=== PATIENT | male | born 1955 | race Caucasian/White ===

== ENCOUNTER 2017-08-05 09:12 | Outpatient (CLI) | payer MEDICARE ==
[2017-08-05] MEDS ORDERED: Gadobenate Dimeglumine 529 MG/1 ML (20ML VIAL) ONE (13:24)
--- NOTE | 2017-08-05 13:35 | MRI ---
MRI OF THE PROSTATE WITH AND WITHOUT IV CONTRAST: Date: 08/05/17 INDICATION: Prostate cancer with recent biopsy 6 weeks ago. TECHNIQUE: Multiplanar, multisequence MR images were obtained of the pelvis with and without IV contrast. 20 mL of MultiHance was utilized for the examination. No comparisons are available. FINDINGS: The prostate measures 4.5 x 3.5 x 4.0 cm, giving an estimated prostatic volume of 32.76 mL. There is some residual T1 hyperintensity seen within the peripheral zone of the mid to apical prostat e gland consistent with the patient's recent biopsy. The residual hemorrhage slightly limits image de tail of the peripheral zone and identification of lesions, particularly on the T2-weighted images. No suspicious restricted diffusion is seen within the peripheral zone. There is a 1.8 x 1.6 cm smudge-like area of ill-defined T2 hypointensity with corresponding restricte d diffusion on the ADC and DWI images. There is positive rapid arterial enhancement with washout of t his area on the dynamic contrast images. No additional suspicious focal lesion is evident. The neurovasculature appears within normal limits. The seminal vesicles are normal appearing. There is scattered diverticula involving the colon. There is osteonecrosis of bilateral femoral heads without evidence of subchondral collapse. No pathologically enlarged lymph nodes are evident. There fat-containing inguinal hernias bilaterally. IMPRESSION: 1. PI-RADS Category 5 - Very high (clinically significant cancer is highly likely to be present). 2. There is a 1.8 cm mass within the medial and lateral aspect of the left mid gland, within the peggy tral zone, that is suspicious for high grade malignancy. 3. Osteonecrosis of both femoral heads. POS: JANAK
== END 2017-08-05 09:13 | disposition home or self-care (01) ==
LOC: TBSIIMAG 09:12
PROVIDERS: ATTEND Urology
DX: C61 Malignant neoplasm of prostate (principal); M87.9 Osteonecrosis, unspecified
CPT/HCPCS: 72197; 82565; A9579

== ENCOUNTER 2017-09-16 12:00 | Inpatient (IN) | payer MEDICARE ==
[2017-09-16 13:47] VITALS: BMI 27.6
[2017-10-08] MEDS ORDERED: Midazolam HCl 2 mg/2 ml Vial ONE ×2 (06:46→07:25)
[2017-10-08] MEDS ORDERED: Fentanyl 100 MCG/2 ML VIAL ONE ×4 (06:46→15:22)
[2017-10-08] MEDS ORDERED: cefOXitin 2 GM VIAL ONE ×2 (07:01→09:59)
[2017-10-08] MEDS ORDERED: Gentamicin 80 MG/2 ML VIAL ONE (07:01)
[2017-10-08] MEDS ORDERED: Gentamicin Sulfate 120 MG in Premix Bag 1 BAG IVPB SCH (07:15)
[2017-10-08] MEDS ORDERED: Dexamethasone 4 mg/ml Vial ONE (07:25)
[2017-10-08] MEDS ORDERED: Gentamicin Sulfate 80 MG in Premix Bag 1 BAG IVPB SCH (07:30)
[2017-10-08] MEDS ORDERED: Sodium Chloride 0.9% 100 ML ONE (07:32)
[2017-10-08] MEDS ORDERED: Lidocaine 1% (PF) 30 ML VIAL ONE (07:34)
[2017-10-08] MEDS ORDERED: Vecuronium 10 MG VIAL ONE ×2 (07:46→13:47)
[2017-10-08] MEDS ORDERED: Fentanyl 250 MCG/5 ML VIAL ONE (07:46)
[2017-10-08] MEDS ORDERED: Albumin 5% 500 ML ONE (07:54)
[2017-10-08] MEDS ORDERED: HYDROmorphone 0.5 MG/0.5 ML SYRINGE ONE (11:38)
[2017-10-08] MEDS ORDERED: Meperidine HCl/PF 25 MG/ML VIAL SLOW IVP PRN (13:07)
[2017-10-08] MEDS ORDERED: Promethazine HCl 25 MG/ML VIAL IM PRN (13:07)
[2017-10-08] MEDS ORDERED: Ondansetron HCl/PF 4 MG/2 ML Vial IVP PRN ×2 (13:07→16:52)
[2017-10-08] MEDS ORDERED: Promethazine HCl 25 MG/ML VIAL SLOW IVP PRN (13:07)
[2017-10-08] MEDS ORDERED: HYDROmorphone 2 MG/ML VIAL SLOW IVP PRN (13:07)
[2017-10-08] MEDS ORDERED: B & O ONE (13:17)
[2017-10-08] MEDS ORDERED: Ondansetron HCl/PF 4 MG/2 ML Vial ONE (13:47)
[2017-10-08] MEDS ORDERED: Glycopyrrolate 0.2 MG/ML 5 ML SYRINGE ONE (13:47)
[2017-10-08] MEDS ORDERED: PROPOFOL 200 MG/20 ML VIAL ONE (13:47)
[2017-10-08] MEDS ORDERED: Ketorolac Tromethamine 30 MG/ML VIAL ONE (13:47)
[2017-10-08] MEDS ORDERED: Lidocaine 1% PF 5 ML VIAL ONE (13:47)
--- NOTE | 2017-10-08 14:06 | OP ---
DATE OF SURGERY: 10/08/2017 SERVICE: Urology. SURGEON: Juventino Mccracken M.D. PREOPERATIVE DIAGNOSIS: Prostate cancer. POSTOPERATIVE DIAGNOSIS: Prostate cancer. PROCEDURE PERFORMED: Robotic-assisted laparoscopic prostatectomy with bilateral pelvic lymph node di ssection. INDICATIONS FOR PROCEDURE: Mr. March is a 62-year-old white male who initially presented to ri with elevated PSA. He underwent prostate biopsy demonstrating multifocal Smoot 3+3 prostate cancer. Hi s PSA was elevated to 9. We discussed options and he elected to go forward with the prostatectomy. Risks and benefits have been discussed and he has agreed to proceed forward. DESCRIPTION OF PROCEDURE: After identification of arm band verification and consent, patient was bro ught back to the operating room where he underwent general anesthesia with endotracheal intubation. He was then placed in low lithotomy position in a steep Trendelenburg position and prepped and draped in usual sterile fashion. After appropriate timeout, a 16 Sudanese Billings catheter was placed into the patient's bladder. A Veress needle entry was used through the umbilicus to cause pneumoperitoneum a t high flow and low pressure until the peritoneum was insufflated to 50 mmHg. The 12 mm balloon port was placed at the umbilicus and the rest of the ports were placed under direct vision with the camer a with a 15 mm port for #1 arm, two 8 mm ports for the #2 and #3 arm, a 5 mm commercial lending assistant port in the ri ght upper quadrant and an 11 port in the right lower quadrant. There were significant adhesions on t he patient's left abdomen which had to be taken down with either sharp dissection or monopolar. Once the adhesions have been taken down, the colon was gently mobilized and then retracted cephalad. A s emicircular incision was made on the anterior surface of the peritoneum in the rectovesical space. T he seminal vesicles were identified and dissected free along with the vas deferens. These were compl etely mobilized for the posterior approach. Denonvilliers fascia was identified and dissection ailyn ed out towards the apex just above the Denonvilliers fascia. We then backed out and began on the piper dder portion of the surgery. An incision was made lateral to each medial umbilical ligament on the r ight and left, getting into the space of Retzius on both sides and using blunt dissection to expose t he pubic arch. There were significant adhesions and scarring on the left side, but this side was als o able to be developed properly. Once adequately developed, the two incisions were connected to each other in the cephalad area and the loose areolar tissue divided to drop the bladder down. The pubic arch was completely cleared free and the periprosthetic space dissected and cleared of loose areolar tissue. The preprosthetic fat in the superficial venous complex was cauterized and then removed for routine pathologic evaluation. The endopelvic fascia on both sides were gently cauterized and opene d to develop the space lateral to the prostate on both sides. This was carried up to the puboprostat ic ligament and all the way down towards the apex of the prostate. The puboprostatics were bipolared and then divided. Once both sides were completely mobilized and the DVC was thinned out enough, the vascular loaded robotic stapler was brought in to staple the dorsal venous complex. The catheter wa s found to be free of the staple line by checking the catheter before stapling. Once the DVC was div ided, the bladder neck dissection was started. The bladder neck was dissected with monopolar cautery reaching the internal sphincter and urethra. This was dissected free with sharp dissection and divi ded to expose the Billings catheter. The Billings was withdrawn and then readvanced to use as a retractor to lift the prostate anteriorly. Dissection was then carried out through the remainder of the bladde r neck posteriorly until the previously dissected space with the seminal vesicles were identified. T he seminal vesicles were then brought up and the pedicles thinned out on both sides and the remainder of Denonvilliers space developed. Given the patient elected for a non-nerve sparing surgery, the ve ssel sealer was then used to divide the pedicles on both sides towards the apex of the prostate. The last one-third to one-fourth of the pedicle was done sharply without energy at this was enclosed pro ximity to the rectum. The urethra was then dissected free using blunt dissection and monopolar caute ry until the entire urethra was able to be elevated using the [place] bipolars. The urethra was the n divided with sharp dissection using scissors and the rectourethralis divided using a combination of cautery and sharp dissection keeping close care to avoid injury to the rectum. No energy was used n ear the rectum. There were 2 very small neurovascular bundle branch bleeders which were pinpoint cau terized with bipolar. Upon completion, the prostate was completely freed up and deposited to the [facility] pericolic gutter. Bilateral pelvic lymph node dissections were then performed using the iliac vei n as a boarder cephalad in the pubic arch caudally. The obturator nerve posteriorly and the circumfl ex femoral vein anteriorly. The intervening fat and lymph nodes were then removed on both sides and these were submitted for routine pathologic evaluation. The Robi stitch using a 2-0 Vicryl was then used with an SH needle to place through the rectourethralis in the base of the bladder to reapproxim ate the bladder neck and the urethra. A V-Loc suture was then used to complete the anastomosis in a running fashion circumferentially. The final 18-Sudanese Billings catheter was able to be passed in. Alt randy there was a little bit of difficulty right at the anastomosis, it is unclear whether the anasto mosis was overtightened or if there is a stitch that may be crossing resulting in difficulty placemen t of the catheter. However, the catheter did go into the bladder with return of clear yellow urine. A 15 mL of sterile water was instilled into the balloon and the suture for the anastomosis tied down onto the urethra. There was some bleeding from where one of the suture passers had come through the DVC with a fairly brisk bleed. An additional suture was placed over this area to stop it which redu adriana it to a slow ooze. Tisseel spray was then sprayed on top of this, which then resulted in complet e hemostasis. FloSeal was then placed into both lymph node dissection spaces and some additional Uday Seal was behind the anastomosis. Pamela spray was then sprayed throughout the pelvis and the prostat e was placed into an Endopouch bag. A #19 LARS drain was brought in through #3 port. The string for t he Endopouch was then brought from the commercial lending assistant port out through the camera port and a Edwardo-Cole on was then used to close the #15 port and #11 commercial lending assistant port. All the insufflation was taken down a nd all the ports removed. The specimen was extracted through the incision for the camera port by ext ending the incisions laterally with cautery and opening up the fascia laterally. Once the prostate w as extracted, the fascia was then reapproximated and closed using [address]-2 in an figure-of -8 eight interrupted fashion. The skin was all then closed with 4-0 Monocryl in subcuticular fashion with Dermabond applied. A 16-A B&O suppository was placed by the surgeon carefully to avoid rectal injury and no blood was seen on the examining finger. A LARS bulb was connected to the tubing. The pa tient's catheter was secured with StatLock. He was then awakened and taken to PACU for recovery in s table condition. COMPLICATIONS: None. ESTIMATED BLOOD LOSS: 150 mL. RETAINED TUBES OR DRAINS: An 18 Sudanese Billings catheter with 15 mL of sterile water in the balloon and a #19 LARS drain. SPECIMENS: Prostate, bilateral seminal vesicles, preprosthetic fat, bilateral pelvic lymph nodes. DISPOSITION: Patient will be admitted to the hospital for postoperative recovery. Once he is recove red, he can be discharged home and will be seen on an outpatient basis.
[2017-10-08] MEDS ORDERED: Bupivacaine HCl 0.5%/Epinephrine 1:200,000/PF 30 ml Vial ONE (14:29)
[2017-10-08 15:04] LABS: Hemoglobin 10.9 g/dL (14.0-18.0); Mean Corpuscular HGB CONC 33.1 g/dL (32.0-36.0); Mean Corpuscular Hemoglobin 29.9 pg (27.0-31.0); Mean Corpuscular Volume 90.5 fl (80.0-94.0); Platelet Count 175 thou/uL (130-400); Red Blood Cell (RBC) Count 3.65 mill/uL (4.70-6.10); White Blood Cell (WBC) Count 8.1 thou/uL (4.8-10.8)
[2017-10-08 15:20] LABS: Anion Gap 12 mmol/L (10-20); BUN (Urea Nitrogen) 27 mg/dL (8.4-25.7); Calc. Creatinine Clearance 58 mL/min (70-130); Calcium 8.6 mg/dL (7.8-10.44); Carbon Dioxide 23 mmol/L (23-31); Chloride 109 mmol/L (98-107); Estimated GFR-MDRD 43; Glucose 150 mg/dL (80-115); Potassium 5.1 mmol/L (3.5-5.1); Sodium 139 mmol/L (136-145)
[2017-10-08 15:33] LABS: Band 3 % (5-11); Lymphocytes 5 % (21-51); MDiff Complete? YES; Monocytes 2 % (0-10); Neutrophil 90 % (42-75); Ovalocytes SLIGHT = 2-5 cells (100X) (0-1/hpf); PLT Morphology Comment Appears Adequate; Polychromasia SLIGHT = 2-3 cells (100X) (0-2/hpf)
[2017-10-08] MEDS ORDERED: hydrALAZINE 20 MG/ML VIAL SLOW IVP PRN (16:52)
[2017-10-08] MEDS ORDERED: Mag-Al 1200 mg/1200 mg/30 ML UDCUP PO PRN (16:52)
[2017-10-08] MEDS ORDERED: Oxybutynin 5 MG TAB PO PRN (16:52)
[2017-10-08] MEDS ORDERED: Hyoscyamine Sulfate SL 0.125 mg Tablet SL PRN (16:52)
[2017-10-08] MEDS ORDERED: Sodium Chloride 0.9% 1,000 ML IV SCH (16:52)
[2017-10-08] MEDS ORDERED: oxyCODONE 5 MG TAB PO PRN ×2 (16:52)
[2017-10-08] MEDS ORDERED: Fentanyl 100 MCG/2 ML VIAL SLOW IVP PRN (16:52)
[2017-10-08] MEDS ORDERED: diphenhydrAMINE 25 MG CAP PO PRN (16:52)
[2017-10-08] MEDS: Acetaminophen 500 MG TAB PO SCH (17:48)
[2017-10-08] MEDS ORDERED: Rosuvastatin 20 MG TAB PO SCH (21:00)
[2017-10-08] MEDS ORDERED: Fenofibrate Nanocrystallized 145 MG TAB PO SCH (21:00)
[2017-10-08] MEDS: Docusate 100 MG CAP PO SCH (21:37)
[2017-10-08] MEDS: traMADol HCl 50 MG TAB PO SCH (21:38)
[2017-10-08] MEDS: CeleCOXIB 100 MG CAP PO SCH (21:38)
[2017-10-08] MEDS: SODIUM CHLORIDE IVPB SCH (21:39)
[2017-10-08] MEDS: ADMIXTURE FEE IVPB SCH (21:39)
[2017-10-08] MEDS: CEFOXITIN IVPB SCH (21:39)
[2017-10-09] MEDS: Acetaminophen 500 MG TAB PO SCH ×3 (00:32→12:03)
[2017-10-09] MEDS: traMADol HCl 50 MG TAB PO SCH ×2 (03:52→09:16)
[2017-10-09 04:20] LABS: #Lymphocytes 0.5 thou/uL (1.20-3.40); #Monocytes 0.6 thou/uL (0.11-0.59); #Neutrophils 5.7 thou/uL (1.40-6.50); %Eosinophils 0.3 % (0.0-10.0); %Lymphocytes 7.7 % (21.0-51.0); Hemoglobin 10.5 g/dL (14.0-18.0); Mean Corpuscular HGB CONC 33.3 g/dL (32.0-36.0); Mean Corpuscular Hemoglobin 30.1 pg (27.0-31.0); Mean Corpuscular Volume 90.4 fl (80.0-94.0); Mean Platelet Volume 7.4 fL (7.4-10.4); Platelet Count 159 thou/uL (130-400); RBC Distribution Width 11.9 % (11.5-14.5); Red Blood Cell (RBC) Count 3.48 mill/uL (4.70-6.10); White Blood Cell (WBC) Count 6.8 thou/uL (4.8-10.8)
[2017-10-09 04:32] LABS: Anion Gap 13 mmol/L (10-20); BUN (Urea Nitrogen) 25 mg/dL (8.4-25.7); Calc. Creatinine Clearance 74 mL/min (70-130); Calcium 8.4 mg/dL (7.8-10.44); Carbon Dioxide 21 mmol/L (23-31); Chloride 109 mmol/L (98-107); Estimated GFR-MDRD 57; Glucose 127 mg/dL (80-115); Sodium 138 mmol/L (136-145)
[2017-10-09] MEDS: ADMIXTURE FEE IVPB SCH (06:17)
[2017-10-09] MEDS: CEFOXITIN IVPB SCH (06:17)
[2017-10-09] MEDS: SODIUM CHLORIDE IVPB SCH (06:17)
[2017-10-09] MEDS ORDERED: Lisinopril 10 MG TAB PO SCH (09:00)
[2017-10-09] MEDS: CeleCOXIB 100 MG CAP PO SCH (09:16)
[2017-10-09] MEDS: Docusate 100 MG CAP PO SCH (09:16)
[2017-10-09 12:07] VITALS: BP 121/69; TEMP 97.9
--- NOTE | 2017-10-09 13:04 | PRG ---
DATE OF SERVICE: 10/09/2017 SUBJECTIVE: The patient had a good night. He denies any uncontrolled pain. He does have some edison ess when getting out of bed, but otherwise states the pain medicines are working well. He did pass s ome gas. He has not had a bowel movement. He denies any nausea or vomiting. He is tolerating a yolie ar liquid diet. He has walked around the entire surgical floor. Denies any chest pain or shortness of breath. He is not complaining of any bladder spasms. OBJECTIVE: VITAL SIGNS: Temperature 97.9, pulse 54, respirations 14, blood pressure 121/69, and saturation 98% on room air. GENERAL: No apparent distress, communicative, and alert. CARDIOVASCULAR: Regular rate and rhythm. CHEST: No increased work of breathing. ABDOMEN: Soft, nontender, nondistended, positive bowel sounds. Incisions clean, dry, and intact. J P with serosanguineous fluid. GENITOURINARY: Billings catheter in place, secured with StatLock draining clear yellow urine. EXTREMITIES: No clubbing, cyanosis, or edema. SCDs in place. IN'S AND OUT'S: The patient had a 940 mL of oral intake and 1160 mL of IV intake. 150 mL of LARS outp ut and 1500 mL a Billings output. LABORATORY EVALUATION: The full set of labs are in the [employer] system, which I have reviewed. Of n leesa, the patient's hemoglobin is stable at 10.5. White count of 6.8, creatinine is improved to 1.28, down from 1.63. Remainder of electrolytes appear to be normal. ASSESSMENT AND PLAN: A 62-year-old white male with prostate cancer, status post robot-assisted lapar oscopic prostatectomy, pelvic lymph node dissection with excellent recovery postoperatively. He does have the expected signs and symptoms of postsurgical changes, but is not having any concerning findi ngs. I did give the patient the option to stay in the hospital or be discharged home and he states adarsh cameron feels like he can go home. I will sent him home with pain medication, bladder spasm medication, st ool softeners, and antibiotics for his followup. We will plan to see him back in 2 weeks with a cyst ogram for a voiding trial at that time. He is to take his antibiotic pill at that time. I have gone over all of his discharge instructions and surgical care instructions and he understands all of his instructions and has agreed to be discharged home.
--- NOTE | 2017-10-09 18:46 | DIS ---
DATE OF ADMISSION: 10/08/2017 DATE OF DISCHARGE: 10/09/2017 ADMITTING PHYSICIAN: Juventino Mccracken MD DISCHARGE PHYSICIAN: Juventino Mccracken MD ADMITTING DIAGNOSIS: Prostate cancer. DISCHARGE DIAGNOSIS: Prostate cancer. PROCEDURE PERFORMED WHILE INPATIENT: Robot-assisted laparoscopic prostatectomy with bilateral pelvic lymph node dissection. BRIEF HISTORY: Mr. March is a 62-year-old white male with a PSA of approximately 9. Biopsies of his prostate demonstrating Melanie 3+3 prostate cancer in 8 out of 12 cores. He is coming in for robot- assisted laparoscopic prostatectomy. Please see the scanned H&P for full details on his history and physical. HOSPITAL COURSE: After surgery (please see operative note for details), the patient was admitted to the hospital for postoperative recovery. He had a LARS drain and a Billings catheter and was kept on ERAS protocol with IV fluids and pain medications per the ERAS protocol. He had a very good night with o nly mild pain. His pain was well controlled with oral pain medication and he did not require any IV pain medication usage. He did pass gas in the morning. His LARS only put out 150 mL. He did have a m ild elevation in his creatinine immediately postop to 1.63, but this resolved with hydration down to 1.28 on postoperative day #1. His hemoglobin remained stable. He was tolerating a clear liquid diet and did pass gas and stated that he was hungry enough that he thinks he can eat some regular food. His LARS drain was removed and it was felt that he could be cleared for discharge. He was able to get up and walk around the hospital floor without any difficulty or problems. He was ready to be dischar [facility] home and was sent home without issues. DISPOSITION: Discharged to home. DISCHARGE CONDITION: Good. DME is Billings catheter to gravity drainage and leg bag. DISCHARGE INSTRUCTIONS: Include no heavy lifting, no strenuous activities, no driving with the isra ter in. He may shower, but should not submerge under water. He should eat a regular diet that is hi gh in proteins and stay well hydrated. He is to notify me if there are any problems with his cathete r, significant hematuria, fever over 101, chest pain, shortness of breath, lower extremity swelling, uncontrolled pain, or any other concerning signs or symptoms the patient may experience. DISCHARGE MEDICATIONS: Include resuming all of his home medications except aspirin, which I have ask ed him to hold for approximately 1-2 weeks. He will be given a new prescription for Levaquin 500 mg p.o. x1 on the day of followup for his catheter removal, oxybutynin 5 mg p.o. 3 times a day p.r.n. ur gency, tramadol 50 mg p.o. q.6 hours p.r.n. pain, [place] 5/325 mg 1-2 tabs p.o. q.4 hours p.r.n. pain, Colace 100 mg p.o. b.i.d. Follow up will be in 2 weeks on 10/22/2017 with a cystogram done beforeha nd for his voiding trial.
== END 2017-10-09 14:04 | disposition home or self-care (01) | DRG 707 ==
LOC: SURG A 10-08 06:13
PROVIDERS: ADMIT Urology; ATTEND Urology
PROC: 0VT04ZZ Resection of Prostate, Percutaneous Endoscopic Approach (ICD-10-PCS; principal; 2017-10-08)
PROC: 07TC4ZZ Resection of Pelvis Lymphatic, Percutaneous Endoscopic Approach (ICD-10-PCS; 2017-10-08)
PROC: 0VT34ZZ Resection of Bilateral Seminal Vesicles, Percutaneous Endoscopic Approach (ICD-10-PCS; 2017-10-08)
PROC: 0VTQ4ZZ Resection of Bilateral Vas Deferens, Percutaneous Endoscopic Approach (ICD-10-PCS; 2017-10-08)
PROC: 8E0W4CZ Robotic Assisted Procedure of Trunk Region, Percutaneous Endoscopic Approach (ICD-10-PCS; 2017-10-08)
DX: C61 Malignant neoplasm of prostate (principal); I42.9 Cardiomyopathy, unspecified; E78.5 Hyperlipidemia, unspecified; Z79.82 Long term (current) use of aspirin; Z79.899 Other long term (current) drug therapy; Z01.812 Encounter for preprocedural laboratory examination
CPT/HCPCS: 36415; 80048; 85025; 86850; 86900; 86901; 88305; 88309; J0670; J0694; J1100; J1170; J1580; J1885; J2001; J2250; J2405; J2704; J3010; J7050; P9045

== ENCOUNTER 2017-09-16 13:24 | Outpatient (CLI) | payer MEDICARE ==
[2017-09-16 15:45] LABS: Hemoglobin 12.1 g/dL (14.0-18.0); Mean Corpuscular HGB CONC 33.9 g/dL (32.0-36.0); Mean Corpuscular Hemoglobin 30.4 pg (27.0-31.0); Mean Corpuscular Volume 89.5 fl (80.0-94.0); Mean Platelet Volume 7.5 fL (7.4-10.4); Platelet Count 217 thou/uL (130-400); RBC Distribution Width 11.8 % (11.5-14.5); Red Blood Cell (RBC) Count 3.98 mill/uL (4.70-6.10); White Blood Cell (WBC) Count 4.8 thou/uL (4.8-10.8)
[2017-09-16 15:48] LABS: Bilirubin Negative (Negative); Blood, Urine Negative (Negative); Clarity CLEAR (Clear); Glucose, Urine (Dipstick) Negative (Negative); Leukocyte Negative (Negative); Nitrite Negative (Negative); Protein, Urine (Dipstick) Negative (Neg-Trace); Specific Gravity, Urine 1.023 (1.002-1.036)
[2017-09-16 15:49] LABS: Bacteria/HPF None Seen HPF (None Seen); Hyaline Casts/LPF 0-3 HYALINE CAST LPF (0-3 Hyaline); RBC/HPF 0-3 HPF (0-3); Squamous Epithelial 0-3 HPF (0-3); WBC/HPF 0-3 HPF (0-3)
[2017-09-16 16:03] LABS: ALT (SGPT) 23 U/L (8-55); AST (SGOT) 22 U/L (5-34); Albumin 4.4 g/dL (3.4-4.8); Alkaline Phosphatase 66 U/L (40-150); Anion Gap 11 mmol/L (10-20); BUN (Urea Nitrogen) 22 mg/dL (8.4-25.7); Bilirubin, Total 0.4 mg/dL (0.2-1.2); Calc. Creatinine Clearance 0 mL/min (70-130); Calcium 9.4 mg/dL (7.8-10.44); Carbon Dioxide 27 mmol/L (23-31); Chloride 105 mmol/L (98-107); Estimated GFR-MDRD 63; Globulin 2.4 g/dL (2.4-3.5); Glucose 93 mg/dL (80-115); Potassium 4.1 mmol/L (3.5-5.1); Protein, Total 6.8 g/dL (5.8-8.1); Sodium 139 mmol/L (136-145)
[2017-09-16 16:29] LABS: INR-International Normal Ratio 1.2; PTT 34.7 SEC (22.9-36.1); Prothrombin Time 15.3 SEC (12.0-14.7)
== END 2017-09-16 13:25 | disposition home or self-care (01) ==
LOC: LABBT 13:24
PROVIDERS: ATTEND Urology
DX: Z01.818 Encounter for other preprocedural examination (principal); C61 Malignant neoplasm of prostate
CPT/HCPCS: 80053; 81001; 85027; 85610; 85730; 87086; 93005; 93010

== ENCOUNTER 2017-09-28 15:50 | Outpatient (CLI) | payer MEDICARE | END 2017-09-28 15:51 | disposition home or self-care (01) | LOC: LABBT 15:50 | PROVIDERS: ATTEND Urology | DX: Z01.818 Encounter for other preprocedural examination (principal); C61 Malignant neoplasm of prostate | CPT/HCPCS: 86850; 86900; 86901 ==

== ENCOUNTER 2017-10-07 10:32 | Outpatient (CLI) | payer MEDICARE | END 2017-10-07 10:33 | disposition home or self-care (01) | LOC: LABBT 10:32 | PROVIDERS: ATTEND Urology | DX: Z01.812 Encounter for preprocedural laboratory examination (principal); C61 Malignant neoplasm of prostate | CPT/HCPCS: 86850; 86900; 86901 ==

== ENCOUNTER 2017-10-18 10:58 | Outpatient (CLI) | payer MEDICARE ==
[2017-10-18] MEDS ORDERED: ISOVUE-370 76%-LOCM 1 ML ONE (11:04)
--- NOTE | 2017-10-18 13:58 | RAD ---
FLUOROSCOPIC CYSTOGRAM STANDARD: History: C61 prostate cancer. Comparison: MRI pelvis, 08-05-17. FINDINGS: Patient was brought to the fluoroscopy suite. All questions were answered. A Billings catheter was in pl gaurav. Retrograde installation of contrast was instilled into the urinary bladder until the patient could no longer tolerate. Approximately 300 ml was instilled. No leak. The oblique images demonstrated no alejandrina k. Post void is normal. IMPRESSION: No evidence of leak. Normal exam. POS: JANAK
== END 2017-10-18 10:59 | disposition home or self-care (01) ==
LOC: RAD 10:58
PROVIDERS: ATTEND Urology
DX: C61 Malignant neoplasm of prostate (principal)
CPT/HCPCS: 51600; 74430

== ENCOUNTER 2023-01-22 09:27 | Outpatient (CLI) | payer MEDICARE ==
[2023-01-22 11:16] LABS: #Basophils 0.1 10x3/uL (0.0-0.2); #Eosinphils 0.1 10x3/uL (0.0-0.5); #Monocytes 0.5 10x3/uL (0.0-1.1); #Neutrophils 3.3 10x3/uL (1.5-8.4); %Basophils 1.1 % (0.0-2.0); %Eosinophils 2.9 % (0.0-6.0); %Lymphocytes 15.3 % (18.0-47.0); %Monocytes 10.1 % (0.0-10.0); %Neutrophils 70.2 % (40.0-75.0); Hematocrit 36.5 % (38.8-50.0); Mean Corpuscular HGB CONC 32.9 g/dL (32.0-36.0); Mean Corpuscular Hemoglobin 29.3 pg (27.0-33.0); Mean Platelet Volume 9.7 fl (7.4-10.4); Platelet Count 172 10x3/uL (150-450); RBC Distribution Width 13.5 % (11.5-14.5); White Blood Cell (WBC) Count 4.8 10x3/uL (3.5-10.5)
[2023-01-22 11:37] LABS: Anion Gap 13 mmol/L (10-20); BUN (Urea Nitrogen) 24 mg/dL (8.4-25.7); Calc. Creatinine Clearance 0 mL/min (70-130); Calcium 9.2 mg/dL (7.8-10.44); Carbon Dioxide 28 mmol/L (23-31); Chloride 107 mmol/L (98-107); Estimated GFR 76; Glucose 96 mg/dL (80-115); Potassium 4.6 mmol/L (3.5-5.1); Sodium 143 mmol/L (136-145)
== END 2023-01-22 09:28 | disposition home or self-care (01) ==
LOC: LABBT 09:27
PROVIDERS: ATTEND Surgery
DX: Z01.818 Encounter for other preprocedural examination (principal); K40.20 Bilateral inguinal hernia, without obstruction or gangrene, not specified as recurrent
CPT/HCPCS: 80048; 85025; 93005; 93010

== ENCOUNTER 2023-01-27 07:09 | Day surgery (SDC) | payer MEDICARE ==
[2023-01-22 09:59] VITALS: BMI 25.0
[2023-01-27] MEDS ORDERED: Bupivacaine 0.25% HCL 30 ML VIAL ONE (09:34)
[2023-01-27] MEDS ORDERED: EPINEPHrine 1 MG/ML AMP ONE (09:34)
[2023-01-27] MEDS ORDERED: Sodium Chloride 0.9% 100 ML ONE (10:08)
[2023-01-27] MEDS ORDERED: CEFAZOLIN 2 GM VIAL ONE (10:08)
[2023-01-27] MEDS ORDERED: fentaNYL PF 100 MCG/2 ML SYRINGE ONE (10:09)
[2023-01-27] MEDS ORDERED: Ondansetron PF 4 MG/2 ML Vial ONE (10:21)
[2023-01-27] MEDS ORDERED: PROPOFOL 200 MG/20 ML VIAL ONE (10:21)
[2023-01-27] MEDS ORDERED: Rocuronium Bromide 10 MG/ML (10ML VIAL) ONE (10:21)
[2023-01-27] MEDS ORDERED: ePHEDrine Sulfate 50 MG/10 ML VIAL ONE (10:21)
[2023-01-27] MEDS ORDERED: Ketorolac Tromethamine 30 MG/ML VIAL ONE (10:21)
[2023-01-27] MEDS ORDERED: Lidocaine 1% PF 5 ML VIAL ONE (10:21)
[2023-01-27] MEDS ORDERED: SUGAMMADEX SODIUM 200 MG/2 ML VIAL ONE (11:47)
[2023-01-27] MEDS ORDERED: fentaNYL 50 mcg/mL 1 mL Vial ONE (12:24)
[2023-01-27] MEDS ORDERED: HYDROcodone/Acetaminophen 5/325 mg Tablet ONE (13:29)
== END 2023-01-27 16:20 | disposition home or self-care (01) ==
LOC: SDC 07:09
PROVIDERS: ATTEND Surgery
PROC: 0YU Anatomical Regions, Lower Extremities, Supplement (ICD-10-PCS; principal; 2023-01-27)
DX: K40.20 Bilateral inguinal hernia, without obstruction or gangrene, not specified as recurrent (principal); I42.2 Other hypertrophic cardiomyopathy; C61 Malignant neoplasm of prostate; J45.909 Unspecified asthma, uncomplicated; E78.00 Pure hypercholesterolemia, unspecified; I10 Essential (primary) hypertension; Z79.82 Long term (current) use of aspirin; Z79.899 Other long term (current) drug therapy
CPT/HCPCS: 49650; J3010; A4314; C1781; J0171; J1885; J2405; J2704; J3490; S0020

== ENCOUNTER 2024-02-16 14:30 | Inpatient (IN) | payer MEDICARE ==
[2024-02-21 13:48] VITALS: BMI 27.1
[2024-03-02] MEDS ORDERED: Bupivacaine PF 0.5% 30 ML VIAL ONE (06:37)
[2024-03-02] MEDS ORDERED: Indocyanine Green 25 MG/10 ML VIAL ONE (06:37)
[2024-03-02] MEDS ORDERED: EPINEPHrine 1 MG/ML VIAL ONE (06:37)
[2024-03-02] MEDS ORDERED: Fentanyl 250 MCG/5 ML VIAL ONE (06:50)
[2024-03-02] MEDS ORDERED: PROPOFOL 40 ML ONE (06:50)
[2024-03-02] MEDS ORDERED: Dexamethasone 20 MG/5 ML VIAL ONE (06:56)
[2024-03-02] MEDS ORDERED: Rocuronium Bromide 10 MG/ML (10ML VIAL) ONE (06:56)
[2024-03-02] MEDS ORDERED: Ondansetron PF 4 MG/2 ML Vial ONE (06:56)
[2024-03-02] MEDS ORDERED: CEFAZOLIN 2 GM VIAL ONE (07:16)
[2024-03-02] MEDS ORDERED: Phenylephrine 40 MG/NS 250 ML 250 ML ONE (07:25)
[2024-03-02] MEDS ORDERED: Magnesium 5 GM/10 ML VIAL ONE (07:25)
[2024-03-02] MEDS ORDERED: Albumin 5% 500 ML ONE (07:26)
[2024-03-02] MEDS ORDERED: Glycopyrrolate 0.2 MG/ML 5 ML SYRINGE ONE ×2 (08:26→08:32)
[2024-03-02] MEDS ORDERED: Vecuronium 10 MG VIAL ONE (09:00)
[2024-03-02] MEDS ORDERED: SUGAMMADEX SODIUM 200 MG/2 ML VIAL ONE (11:10)
[2024-03-02] MEDS ORDERED: Bisacodyl 10 MG SUPP PR PRN (13:13)
[2024-03-02] MEDS ORDERED: Ondansetron PF 4 MG/2 ML Vial IVP PRN (13:13)
[2024-03-02] MEDS ORDERED: Mag-Al 1200 mg/1200 mg/30 ML UDCUP PO PRN (13:13)
[2024-03-02] MEDS ORDERED: Oxybutynin 5 MG TAB PO PRN (13:13)
[2024-03-02] MEDS ORDERED: diphenhydrAMINE 25 MG CAP PO PRN (13:13)
[2024-03-02] MEDS ORDERED: fentaNYL 50 mcg/mL 1 mL Vial SLOW IVP PRN (13:50)
[2024-03-02 14:36] LABS: Hematocrit 35.5 % (42.0-52.0); Hemoglobin 11.4 g/dL (14.0-18.0); Mean Corpuscular HGB CONC 32.1 g/dL (32.0-36.0); Mean Corpuscular Hemoglobin 29.1 pg (27.0-31.0); Mean Corpuscular Volume 90.6 fL (78.0-98.0); Mean Platelet Volume 9.3 fL (7.4-10.4); Platelet Count 162 10x3/uL (130-400); Red Blood Cell (RBC) Count 3.92 mill/uL (4.70-6.10)
[2024-03-02 14:49] LABS: Anion Gap 11 mmol/L (10-20); BUN (Urea Nitrogen) 31 mg/dL (8.4-25.7); Calc. Creatinine Clearance 66 mL/min (70-130); Calcium 8.1 mg/dL (7.8-10.44); Carbon Dioxide 22 mmol/L (23-31); Chloride 112 mmol/L (98-107); Estimated GFR 58; Glucose 143 mg/dL (80-115); Potassium 4.3 mmol/L (3.5-5.1); Sodium 141 mmol/L (136-145)
[2024-03-02] MEDS: Acetaminophen 500 MG TAB PO SCH (14:55)
[2024-03-02] MEDS: traMADol HCl 50 MG TAB PO SCH (14:56)
[2024-03-02] MEDS: Sodium Chloride 0.9% 1,000 ML IV SCH (14:56)
[2024-03-02] MEDS: CEFAZOLIN 1 GM in Sodium Chloride 0.9% 100 ML IVPB SCH (15:00)
[2024-03-02] MEDS: oxyCODONE 5 MG TAB PO PRN ×2 (17:26→23:44)
[2024-03-02] MEDS: Rosuvastatin 20 MG TAB PO SCH (20:32)
[2024-03-02] MEDS: Docusate 100 MG CAP PO SCH (20:32)
[2024-03-02] MEDS ORDERED: Fenofibrate Nanocrystallized 145 MG TAB PO SCH (21:00)
[2024-03-03 06:27] LABS: #Basophils 0.03 10x3/uL (0.0-0.2); %Basophils 0.4 % (0.0-1.0); %Eosinophils 0.4 % (0.0-10.0); %Lymphocytes 6.5 % (21.0-51.0); %Neutrophils 78.4 % (42.0-75.0); Hematocrit 32.2 % (42.0-52.0); Hemoglobin 10.4 g/dL (14.0-18.0); Mean Corpuscular HGB CONC 32.3 g/dL (32.0-36.0); Mean Corpuscular Hemoglobin 28.9 pg (27.0-31.0); Mean Corpuscular Volume 89.4 fL (78.0-98.0); Mean Platelet Volume 10.2 fL (7.4-10.4); Platelet Count 152 10x3/uL (130-400); RBC Distribution Width 13.2 % (11.5-14.5)
[2024-03-03 06:42] LABS: Anion Gap 12 mmol/L (10-20); BUN (Urea Nitrogen) 28 mg/dL (8.4-25.7); Calc. Creatinine Clearance 50 mL/min (70-130); Calcium 8.1 mg/dL (7.8-10.44); Carbon Dioxide 22 mmol/L (23-31); Chloride 111 mmol/L (98-107); Estimated GFR 41; Glucose 120 mg/dL (80-115); Potassium 4.5 mmol/L (3.5-5.1); Sodium 140 mmol/L (136-145)
[2024-03-03] MEDS: Fenofibrate 48 MG TAB PO SCH (09:37)
[2024-03-03] MEDS: Amlodipine 5 MG TAB PO SCH (09:38)
[2024-03-03] MEDS: Albumin 25% 25 GM (100 mL) BOT IVPB SCH (12:07)
[2024-03-04 06:05] LABS: #Basophils Less than 0.03 10x3/uL (0.0-0.2); %Basophils 0.2 % (0.0-1.0); %Eosinophils 4.6 % (0.0-10.0); %Lymphocytes 7.5 % (21.0-51.0); %Monocytes 11.3 % (0.0-10.0); %Neutrophils 76.1 % (42.0-75.0); Hematocrit 31.8 % (42.0-52.0); Hemoglobin 10.2 g/dL (14.0-18.0); Mean Corpuscular HGB CONC 32.1 g/dL (32.0-36.0); Mean Corpuscular Hemoglobin 28.8 pg (27.0-31.0); Mean Corpuscular Volume 89.8 fL (78.0-98.0); Mean Platelet Volume 9.6 fL (7.4-10.4); Platelet Count 134 10x3/uL (130-400); RBC Distribution Width 13.4 % (11.5-14.5); Red Blood Cell (RBC) Count 3.54 mill/uL (4.70-6.10)
[2024-03-04 06:16] LABS: Anion Gap 10 mmol/L (10-20); BUN (Urea Nitrogen) 26 mg/dL (8.4-25.7); Calc. Creatinine Clearance 53 mL/min (70-130); Calcium 8.5 mg/dL (7.8-10.44); Carbon Dioxide 24 mmol/L (23-31); Chloride 110 mmol/L (98-107); Estimated GFR 44; Glucose 114 mg/dL (80-115); Sodium 140 mmol/L (136-145)
[2024-03-04 12:37] VITALS: BP 144/75; TEMP 97.9
[2024-03-04] MEDS: FLU (Fluad Triv) TS24-25 (65UP)/MF59C/PF 45 MCG/0.5 ML Syringe IM ONE (14:50)
== END 2024-03-04 14:37 | disposition home or self-care (01) | DRG 657 ==
LOC: SURG A 03-02 06:29 → EDSTATUS 03-02 14:00 → SURG A 03-02 14:03
PROVIDERS: ADMIT Urology; ATTEND Urology
PROC: 0TT04ZZ Resection of Right Kidney, Percutaneous Endoscopic Approach (ICD-10-PCS; principal; 2024-03-02)
DX: C64.1 Malignant neoplasm of right kidney, except renal pelvis (principal); E87.20 Acidosis, unspecified; N17.9 Acute kidney failure, unspecified; K91.72 Accidental puncture and laceration of a digestive system organ or structure during other procedure; J45.909 Unspecified asthma, uncomplicated; I25.5 Ischemic cardiomyopathy; E78.5 Hyperlipidemia, unspecified; C61 Malignant neoplasm of prostate; I12.9 Hypertensive chronic kidney disease with stage 1 through stage 4 chronic kidney disease, or unspecified chronic kidney disease; N18.30 Chronic kidney disease, stage 3 unspecified; Z79.899 Other long term (current) drug therapy; Z92.3 Personal history of irradiation; Z90.49 Acquired absence of other specified parts of digestive tract; Z90.79 Acquired absence of other genital organ(s); D64.9 Anemia, unspecified
CPT/HCPCS: 36415; 71045; 80048; 85025; 85027; 86850; 86900; 86901; 88307; C1713; C1776; C2613; J0171; J0665; J0690; J1100; J2405; J2704; J3010; J3475; J7030; P9045; P9047

== ENCOUNTER 2024-02-21 13:32 | Outpatient (CLI) | payer MEDICARE ==
[2024-02-21 15:12] LABS: #Basophils 0.04 10x3/uL (0.0-0.2); %Basophils 0.8 % (0.0-1.0); %Lymphocytes 19.8 % (21.0-51.0); %Monocytes 12.7 % (0.0-10.0); %Neutrophils 60.7 % (42.0-75.0); Hemoglobin 12.4 g/dL (14.0-18.0); Mean Corpuscular HGB CONC 32.6 g/dL (32.0-36.0); Mean Corpuscular Hemoglobin 29.1 pg (27.0-31.0); Mean Corpuscular Volume 89.2 fL (78.0-98.0); Mean Platelet Volume 10.5 fL (7.4-10.4); Platelet Count 203 10x3/uL (130-400); RBC Distribution Width 13.2 % (11.5-14.5); Red Blood Cell (RBC) Count 4.26 mill/uL (4.70-6.10)
[2024-02-21 15:25] LABS: INR-International Normal Ratio 1.2; PTT 30.5 sec (22.9-36.1); Prothrombin Time 14.9 sec (12.0-14.7)
[2024-02-21 15:27] LABS: Anion Gap 12 mmol/L (10-20); BUN (Urea Nitrogen) 30 mg/dL (8.4-25.7); Calc. Creatinine Clearance 0 mL/min (70-130); Calcium 9.2 mg/dL (7.8-10.44); Carbon Dioxide 27 mmol/L (23-31); Chloride 109 mmol/L (98-107); Estimated GFR 51; Glucose 105 mg/dL (80-115); Potassium 4.1 mmol/L (3.5-5.1); Sodium 144 mmol/L (136-145)
[2024-02-21 15:28] LABS: Bacteria/HPF None Seen HPF (None Seen); Bilirubin Negative (Negative); Blood, Urine Negative (Negative); Clarity Clear (Clear); Glucose, Urine (Dipstick) Normal (Negative); Ketone, Urine Negative (Negative); Leukocyte Negative Leu/uL (Negative); Nitrite Negative (Negative); Protein, Urine (Dipstick) Negative (Neg-Trace); RBC/HPF 0-3 HPF (0-3); Specific Gravity, Urine 1.021 (1.002-1.036); Squamous Epithelial None Seen HPF (0-3); Urobilinogen Normal mg/dL (Less than 2); WBC/HPF 0-3 HPF (0-3)
== END 2024-02-21 13:33 | disposition home or self-care (01) ==
LOC: LABBT 13:32
PROVIDERS: ATTEND Urology
DX: Z01.818 Encounter for other preprocedural examination (principal); C61 Malignant neoplasm of prostate; N52.31 Erectile dysfunction following radical prostatectomy; N28.89 Other specified disorders of kidney and ureter
CPT/HCPCS: 80048; 81001; 85025; 85610; 85730; 87086; 93005; 93010